=== PATIENT | female | born 1950 | race Caucasian/White ===

== ENCOUNTER → 2017-07-23 13:43 | Outpatient (CLI) | payer OTHER, SELFPAY ==
[2017-07-23 14:21] LABS: CREATININE FINGERSTICK 1.1 mg/dL (0.55-1.02)
--- NOTE | 2017-07-23 14:30 | MRI_ITS ---
STUDY: MRI BRAIN WITH AND WITHOUT CONTRAST REASON FOR EXAM: Female, 67 years old. .Diplopia/and result vertigo. History of left breast cancer with lumpectomy in 2010. TECHNIQUE: Standardized multiplanar fat and water weighted pulse sequences were obtained. 10ml ml of Gadavist contrast material was administered intravenously for the contrast portion of the examination. COMPARISON: None. FINDINGS: No restricted diffusion to suspect acute or subacute ischemic infarct. No focal signal abnormalities throughout the brain parenchyma. The nowak matter, white matter, ventricles and cisterns are normal. Thin sections of the orbits were performed but there are motion degradation artifacts. No suspicious or osseous abnormalities or enhancing lesions of the orbital globes, extraocular muscles, intraconal fat and optic nerves. The lacrimal glands are normal. Normal size of the ventricles and extra-axial spaces for the patient's age. Normal white matter tracts of the supratentorial brain. Normal bilateral basal ganglia. Normal thalami. There is no extra-axial fluid accumulation. Normal flow voids within the major intracranial circulation suggesting patency by spin echo criteria. Normal venous enhancement. There is no enhancing intra-axial or extra-axial abnormality. Normal sella turcica, pituitary gland, infundibular stalk, optic chiasm and hypothalamus. Normal tectal plate and pineal gland. Normal midbrain, stanislaw and medulla. Normal cerebellum. Normal basal cisterns. Normal bilateral temporal bones. Normal bilateral internal auditory canals. No demonstrated orbital abnormality, within the constraints of a routine brain study. Normal visualized paranasal sinuses. Normal calvarium and skull base. Normal visualized soft tissue structures. Normal visualized upper cervical spine. MRI/Brain W/WO Contrast IMPRESSION: Normal unenhanced and enhanced MRI of the brain and orbits. Electronically Signed: Ryan Almonte MD at 15:23 EST , Service support ,
== END ==
PROVIDERS: Family Provider Internal Medicine; PCP Internal Medicine; Visit Provider Ophthalmology
DX: H53.2 Diplopia (principal); H55.00 Unspecified nystagmus
CPT/HCPCS: 70553; A9585

== ENCOUNTER 2017-08-19 15:00 | Outpatient (RCR) | payer OTHER, SELFPAY ==
--- NOTE | 2017-08-09 09:07 | HP.PTEVAL_ITS ---
Patient's Visit Information CHLOE PLUNKETT is a 67 year old F referred to Physical Therapy by Jem Licona MD with a diagnosis of BPPV. Date of Evaluation: 08/09/17 Physical Therapist: Jem Brito DPT, [place] - Visit Plan Frequency: 1-2x /Week Duration: 2-4 Weeks Plan: 1-2x/week for 2-4 weeks as needed for positional treatments and exercises and return to activity. - Subjective Subjective: Had dizzyness maybe starting with flu in June. After flu was gone, was getting spinning with standing up, that went away and then just got some movement in eyes. Currently that is improving but still a problem. Getting up in the morning takes extra time as she has to be careful standing. Lying down and looking up also cause some spinning for short duration. In between session feels OK most of time unless she is hurrying. No falls but needs to be careful during episodes. Sleeping is OK. Activities at home require care with stairs for laundry, Has to hang on to go upstairs at the office. 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 - Objective Walks I in and out of PT without evidence of imbalance. - R hallpike, + L hallpike for up torsional nystagmus of 8 second duration, treated with Melissa and post Melissa instruct. - Hallpike after the treatment. - Goals Goal 1:: abolish dizzyness at night Goal Time Frame: 2-4 Weeks Goal 2:: Full activity and 29/30 balance Goal Time Frame: 2-4 Weeks - Rehabilitation Potential Physical Therapy Diagnosis: L posterior canalithiasis Rehabilitation Potential: Good - Anticipated Interventions Patient/Client Instruction: Educate patient on: Condition, Plan of Care Other: to decrease dizzyness. Comment: positional treatments and exercises as needed. return to function ex as needed. For the Purpose of:: To increase tolerance to activity/condition/position, To improve ability of physical actions for home/community/work/leisure Thank you for the opportunity to evaluate your patient. For Medicare and Medicare HMO plans, please review the plan of care and approve it. It will need to be FAXED BACK to us at [phone] for Medicare purposes. Please let me know if there are questions or concerns regarding this plan of care. Physician Signature: Date:
--- NOTE | 2017-12-13 15:07 | HP.PT.NRP ---
HP - Discharge Summary (1) - Patient Information CHLOE PLUNKETT was seen in my office for initial evaluation on 08/09/17. The following Plan of Care was established for this patient: Initial Frequency: 1-2x /Week Initial Duration: 2-4 Weeks - Anticipated Interventions Patient/Client Instruction: Educate patient on: Condition, Plan of Care Other: to decrease dizzyness. For the Purpose of:: To increase tolerance to activity/condition/position, To improve ability of physical actions for home/community/work/leisure This patient was last seen in our office 08/19/17. Pertinent comments regarding their Physical therapy will appear below: Pt seen 3 visits for BPPV. She did nto show up for her remaining visit or recheck. at this point, it has been over two months and I will discontinue due to nonattnednace. At this point I will be discontinuing this patient from physical therapy. I would be happy to see this patient again in the future if found appropriate by the physician. Thank you! Jem Brito, DPT, [place]
== END 2017-08-19 19:00 | disposition home or self-care (01) ==
LOC: PT 15:00
PROVIDERS: Family Provider Internal Medicine; PCP Internal Medicine; Visit Provider Otolaryngology
DX: H81.13 Benign paroxysmal vertigo, bilateral (principal)
CPT/HCPCS: 97161; 97530

== ENCOUNTER 2020-08-22 16:10 | Outpatient (RCR) | payer MEDICARE, SELFPAY ==
[2020-08-22] MEDS: COVID-19 VACC, MRNA(PFIZER)/PF 30 MCG/0.3 ML SYRINGE IM (10:36)
[2020-09-12] MEDS: COVID-19 VACC, MRNA(PFIZER)/PF 30 MCG/0.3 ML SYRINGE IM (10:23)
== END 2020-08-22 23:59 ==
LOC: IMMUN 16:10
PROVIDERS: PCP Internal Medicine; Visit Provider Family Medicine
DX: Z23 Encounter for immunization (principal)
CPT/HCPCS: 0001A; 0002A